=== PATIENT | female | born 1965 | race Caucasian/White ===

== ENCOUNTER 2020-12-16 19:21 | Emergency (ER) | payer OTHER ==
[~2020-12-16 19:21] MED LIST: ADVIL COLD & S1 EACH PO; BACTRIM 400-801 EACH PO; BUPROPION XL150 MG PO; DONNATAL E16.2 MG/2 PO; GABAPENTIN600 MG PO; HYDRALAZINE25 MG PO; IBUPROFEN800 MG PO; MELOXICAM15 MG PO; NEURONTIN600 MG PO; ONDANSETRON ODT4 MG PO; OXYBUTYNIN CHLO10 MG PO; OXYCODONE-ACET1 EACH PO; PERCOCET 10-321 EACH PO; PERCOCET 10/321 EACH PO; PROMETHEGA12.5 MG/SU PR; SEROQUEL 25MG T25 MG PO; VIIBRYD40 MG PO; ZESTRIL40 MG PO
[2020-12-16 20:36] LABS: BASOPHIL 0.7 % (0-2); EOSINOPHIL 3.2 % (0-5); HCT 35.5 % (37.0-47.0); HGB 11.2 g/dl (12.5-16.0); LYMPHOCYTE 31.4 % (15-48); MCH 27.7 pg (25.0-31.0); MCHC 31.5 g/dL (32.0-36.0); MCV 87.9 fL (78.0-100.0); MONOCYTE 5.8 % (0-12); MPV 10.9 fL (6.0-9.5); NEUTROPHIL 58.4 % (41-80); NRBC 0; PLT 172 K/uL (150-400); RBC 4.04 M/uL (4.20-5.40); RDW 13.9 % (11.5-14.0); WBC 4.3 K/uL (4.0-10.5)
[2020-12-16 21:06] LABS: LACTIC ACID 1.5 mmol/L (0.4-1.9)
[2020-12-16 21:07] LABS: ALBUMIN 3.1 g/dL (3.4-5.0); BILIRUBIN - TOTAL 0.4 mg/dL (0.2-1.0); BUN/CREAT RATIO (CALC) 13.3 RATIO; CREATININE 0.83 mg/dL (0.51-0.95); GLOBULIN (CALCULATION) 4.2 g/dL; POTASSIUM 3.6 mmol/L (3.5-5.1); TOTAL PROTEIN 7.3 g/dL (6.4-8.2)
[2020-12-16] MEDS ORDERED: CLINDAMYCIN 15150 MG PO (22:18)
[2020-12-16] MEDS ORDERED: PHENERGAN25 M1 PO (22:18)
[2020-12-16] MEDS ORDERED: DIFLUCAN150 MG PO (23:49)
[2021-01-11] MEDS ORDERED: OXYCODONE-ACET1 EACH PO (17:52)
== END 2020-12-16 23:00 | disposition home or self-care (01) ==
LOC: FER 19:21
PROVIDERS: Emergency Medicine Emergency Medical Services
DX: K04.7 Periapical abscess without sinus (principal); I10 Essential (primary) hypertension; F32.9 Major depressive disorder, single episode, unspecified
CPT/HCPCS: 36415; 70487; 80053; 83605; 85025; 87040; J1100; J1170; J1200; J1885; J2270; J2405; J2550; J7030; Q0163; Q9967

== ENCOUNTER 2022-02-07 08:39 | Emergency (ER) | payer OTHER ==
[~2022-02-07 08:39] MED LIST changes: +CLINDAMYCIN 15150 MG PO; +DIFLUCAN150 MG PO; +PHENERGAN25 M1 PO; +TIZANIDINE HCL2 MG PO
[2022-02-07 09:31] LABS: EOSINOPHIL 1.9 % (0-5); HCT 37.7 % (37.0-47.0); HGB 11.9 g/dl (12.5-16.0); LYMPHOCYTE 31.9 % (15-48); MCH 27.4 pg (25.0-31.0); MCHC 31.6 g/dL (32.0-36.0); MCV 86.7 fL (78.0-100.0); MONOCYTE 7.4 % (0-12); MPV 11.1 fL (6.0-9.5); NEUTROPHIL 57.6 % (41-80); NRBC 0; PLT 205 K/uL (150-400); RBC 4.35 M/uL (4.20-5.40); RDW 14.3 % (11.5-14.0); WBC 6.2 K/uL (4.0-10.5)
[2022-02-07 09:54] LABS: ALBUMIN 3.6 g/dL (3.4-5.0); BILIRUBIN - TOTAL 0.6 mg/dL (0.2-1.0); C-REACTIVE PROTEIN 1.4 mg/dL (<=0.90); CREATININE 0.88 mg/dL (0.51-0.95); GLOBULIN (CALCULATION) 4.6 g/dL; POTASSIUM 3.8 mmol/L (3.5-5.1); TOTAL PROTEIN 8.2 g/dL (6.4-8.2)
[2022-02-07 10:08] LABS: URIC ACID 8.6 mg/dL (2.6-6.2)
[2022-02-07] MEDS ORDERED: NAPROXEN500 MG PO (11:02)
[2022-02-07] MEDS ORDERED: CEPHALEXIN500 M1 PO (11:02)
[2022-02-07] MEDS ORDERED: PERCOCET 5-3251 EACH PO (11:02)
[2022-02-07] MEDS ORDERED: PREDNISONE 20MG20 MG PO (11:02)
[2022-02-08] MEDS ORDERED: OXYCODONE-ACET1 EACH PO ×2 (15:47→15:54)
== END 2022-02-07 12:00 | disposition home or self-care (01) ==
LOC: FER 08:39
PROVIDERS: Internal Medicine
DX: E79.0 Hyperuricemia without signs of inflammatory arthritis and tophaceous disease (principal); S60.222A Contusion of left hand, initial encounter; S60.221A Contusion of right hand, initial encounter; I10 Essential (primary) hypertension; Z87.891 Personal history of nicotine dependence; Z20.822 Contact with and (suspected) exposure to COVID-19
CPT/HCPCS: 36415; 80053; 83880; 84550; 85025; 86140; J1100; J1170; J1885; U0002